=== PATIENT | male | born 1990 | race Caucasian/White ===

== ENCOUNTER 2021-12-07 21:33 | Emergency (ER) | payer SELFPAY ==
--- OUTSIDE RECORDS SUMMARY | 2021-12-07 21:35 | XMS REPORT | Continuity of Care Document ---
:1990 Author Organization [facility] t Address [address] [place] [address] Care Team Providers Name Role Phone BLAKE MARTINEZ Attending Clinician Unavailable Tana HANNON Attending Clinician Unavailable Katie Kaplan Attending Clinician Katie SOLARES Attending Clinician Unavailable Doctor Unassigned, Name Attending Clinician Unavailable Problems This patient has no known problems. Allergies, Adverse Reactions, Alerts Allergy Allergy Status Severity Reaction(s) Onset Inactive Treating Comm ents Source Name Type Date Date Clinician NO KNOWN Drug Active Univers ALLERGIE Class ity of S [facility] Social History Social Habit Start Date Stop Date Quantity Comments Source Sex Assigned At [facility] Smoking Status Start Date Stop Date Source Unknown if ever smoked [facility] Medications This patient has no known medications. Vital Signs Vital Name Observation Time Observation Value Comments Source Heart rate 2020-05-13 18:38:00 115 /min [facility] Body height 2020-05-13 18:38:00 177.8 cm [facility] Body weight 2020-05-13 18:38:00 74.254 kg [facility] BMI 2020-05-13 18:38:00 23.49 kg/m2 [facility] Oxygen saturation 2020-05-13 18:38:00 100 /min [facility] in Arterial blood Medical [facility] by Pulse oximetry Systolic blood 2020-05-13 18:38:00 131 mm[facility]Hg[facility] pressure [facility] Diastolic blood 2020-05-13 18:38:00 91 mm[Hg] [facility] [place] Procedures Procedure Date / Time Performed Performing Clinician [facility] e PATIENT QUESTIONNAIRE 2020-05-13 05:01:00 Doctor Unassigned, No [facility] Encounters Start End Encounter Admission Attending Care Care Encounter Source Date/Time Date/Time Type Type Clinicians Facility Department ID 2021-11-13 2021-11-15 Emergency E MICHELLE [facility] [id number] 00:25:00 16:12:00 JEAN PAUL campos [facility] 2020-11-18 2020-11-18 Emergency E PARVEZ [facility] [id number] [facility] 11:10:00 22:50:00 WINNIE 2020-05-13 2020-05-14 Office [facility] [id number] Univers 13:09:35 13:30:20 Visit Emily SPENCER [id number] ity of [place] [id number] [place] [facility] [id number] [facility] [address] [facility] 2020-05-13 2020-05-[address] [facility] [id number] Univers 13:30:00 13:30:00 EMILY chan f [facility] 2020-05-13 2020-05-13 Orders Doctor AMAN [id number] Univers 00:00:00 00:00:00 Only Unassigned, ELIZABETH [id number] ity of [place] [facility] [id number] Flynn as [phone] [facility] [address] Results This patient has no known results.
[2021-12-07] MEDS ORDERED: DIPHENHYDRAMINE 50 MG/ML VIAL ONE (21:55)
[2021-12-07] MEDS ORDERED: METOCLOPRAMIDE 10 MG/2mL INJ ONE (21:55)
[2021-12-07] MEDS ORDERED: NA CHLORIDE 0.9% 100 ML ONE (22:31)
[2021-12-07] MEDS ORDERED: METHOCARBAMOL 1,000 MG/10 ML VIAL IV ONE (22:31)
[2021-12-07] MEDS ORDERED: dexAMETHasone 10 MG/ML VIAL ONE (22:31)
[2021-12-07] MEDS ORDERED: KETOROLAC 30 MG/ML INJ ONE (22:31)
[2021-12-07 22:52] LABS: Absolute Lymphocytes (CBC) 2.6 K/uL (0.7-4.9); Hematocrit 32.7 % (39.6-49.0); Lymphocytes % 40.9 % (15.3-44.8); MPV 7.8 fL (7.6-11.3); RBC Red Blood Cell Count 3.84 M/uL (4.33-5.43)
[2021-12-07] MEDS ORDERED: FENTANYL CITR 100 MCG/2 ML ONE (22:54)
[2021-12-07 23:00] LABS: Potassium 3.5 mmol/L (3.5-5.1)
[2021-12-08] MEDS ORDERED: FENTANYL CITR 100 MCG/2 ML ONE (01:35)
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
[2021-12-08 04:24] VITALS: TEMP 98.1
[2021-12-08 04:31] VITALS: O2SAT 96
[2021-12-08 04:32] VITALS: BP 131/90
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
== END 2021-12-08 04:18 | disposition short-term general hospital (02) ==
LOC: ER 21:33
DX: M54.17 Radiculopathy, lumbosacral region (principal); R53.1 Weakness; F17.220 Nicotine dependence, chewing tobacco, uncomplicated; Z88.6 Allergy status to analgesic agent; Z20.822 Contact with and (suspected) exposure to COVID-19
CPT/HCPCS: 36415; 72131; 80048; 85025; 96374; 96375; 99285; J1100; J1200; J2765; J2800; J3010; U0003